=== PATIENT | male | born 2000 | race Caucasian/White ===

== ENCOUNTER 2021-01-16 23:06 | Emergency (ER) | payer OTHER ==
[~2021-01-16] VITALS: Ht 175.3 cm; Wt 93.0 kg
[2021-01-16 23:12] VITALS: BP 127/96
--- NOTE | 2021-01-17 00:35 | NUR ---
PT AMBULATED TO BED 02
--- NOTE | 2021-01-17 00:36 | NUR ---
EKG PERFORMED AT BEDSIDE. EKG READS SINUS RHYTHM @ 63
--- NOTE | 2021-01-17 00:38 | NUR ---
21 Y/O MALE C/O CHEST PAIN STARTED TODAY. PT STATES INTERMITTENT SHARP 6/10 PAIN RADIATING TO LT ARM. HEART SOUNDS HEARD S1 AND S2. LUNG SOUNDS CLEAR. VSS. MEDHX: DENIES NKA
[2021-01-17 01:04] VITALS: BP 127/96
--- NOTE | 2021-01-17 01:04 | NUR ---
Patient discharged with v/s stable. Written and verbal after care instructions given and explained. Patient verbalized understanding. Ambulatory with steady gait. All questions addressed prior to discharge. Advised to follow up with PMD.
== END 2021-01-17 01:04 | disposition home or self-care (01) ==
LOC: MED 23:06
DX: R07.89 Other chest pain (principal); R06.02 Shortness of breath
CPT/HCPCS: 71045; 93005; 99283